=== PATIENT | female | born 1980 | race Asian ===

== ENCOUNTER 2016-10-22 19:20 | Emergency (ER) | payer OTHER ==
--- NOTE | 2016-10-22 19:26 | PDOC ---
History of Present Illness - General History Source: Patient Exam Limitations: No Limitations - History of Present Illness Initial Comments: 10/22/16 20:51 The patient is a 36 year old female presenting, with a significant past medical history of diabetes and HTN, who presents to the emergency department with abdominal pain, nausea and chills for the past 2 weeks. She describes her pain as localized in the right lower quadrant, ranging from mild to moderate, without radiation or modifying factors. She states that the pain usually lasts roughly 1 minute before resolving. She denies taking anything for the pain. The patient went to urgent care to get evaluated and was advised to come to the ED for further evaluation. The patient denies chest pain, shortness of breath, headache and dizziness. Denies fever, chills, nausea, vomit, diarrhea and constipation. Denies dysuria, frequency, urgency and hematuria. Allergies: None Past surgical history: None reported Social history: No alcohol, tobacco or drug use reported <Delvin Lugo - Last Filed: 10/22/16 21:43> <Tia Flores - Last Filed: 10/23/16 00:22> - General Chief Complaint: Pain Stated Complaint: ABD PAIN SENT FROM URGENT CARE Time Seen by Provider: 10/22/16 19:23 Past History <Delvin Lugo - Last Filed: 10/22/16 21:43> - Past Medical History Asthma: No Cancer: No Cardiac Disorders: No Diabetes: Yes HTN: Yes Seizures: No Thyroid Disease: No - Psycho/Social/Smoking Cessation Hx Suicidal Ideation: No Smoking History: Never smoked Have you smoked in the past 12 months: No Number of Cigarettes Smoked Daily: 0 Hx Alcohol Use: No Drug/Substance Use Hx: No Hx Substance Use Treatment: No <Tia Flores - Last Filed: 10/23/16 00:22> - Past Medical History Allergies/Adverse Reactions: Allergies Allergy/AdvReac Type Severity Reaction Status Date / Time No Known Allergies Allergy Verified 10/22/16 19:22 Home Medications: Ambulatory Orders NK [No Known Home Medication] 02/03/16 Review of Systems - Review of Systems Able to Perform ROS?: Yes Comments:: 10/22/16 20:47 GENERAL/CONSTITUTIONAL: (+) Chills. No fever. No weakness. HEAD, EYES, EARS, NOSE AND THROAT: No change in vision. No ear pain or discharge. No sore throat. CARDIOVASCULAR: No chest pain or shortness of breath RESPIRATORY: No cough, wheezing, or hemoptysis. GASTROINTESTINAL: (+) Abdominal pain, Nausea. No vomiting, diarrhea or constipation. GENITOURINARY: No dysuria, frequency, or change in urination. MUSCULOSKELETAL: No joint or muscle swelling or pain. No neck or back pain. SKIN: No rash NEUROLOGIC: No headache, vertigo, loss of consciousness, or change in strength/ sensation. ENDOCRINE: No increased thirst. No abnormal weight change HEMATOLOGIC/LYMPHATIC: No anemia, easy bleeding, or history of blood clots. ALLERGIC/IMMUNOLOGIC: No hives or skin allergy. <Delvin Lugo - Last Filed: 10/22/16 21:43> *Physical Exam - Vital Signs Last Vital Signs Temp Pulse Resp BP Pulse Ox 98.1 F 76 18 115/80 98 10/22/16 19:20 10/22/16 19:20 10/22/16 19:20 10/22/16 19:20 10/22/16 19:20 - Physical Exam Comments: 10/22/16 21:36 GENERAL: Awake, alert, and fully oriented, in no acute distress HEAD: No signs of trauma, normocephalic, atraumatic EYES: PERRLA, EOMI, sclera anicteric, conjunctiva clear ENT: Auricles normal inspection, hearing grossly normal, nares patent, oropharynx clear without exudates. (+) Dry mucosa NECK: Normal ROM, supple, no lymphadenopathy, JVD, or masses LUNGS: No distress, speaks full sentences, clear to auscultation bilaterally HEART: Regular rate and rhythm, normal S1 and S2, no murmurs, rubs or gallops, peripheral pulses normal and equal bilaterally. ABDOMEN: (+) Bilateral lower quadrant and suprapubic tenderness, moderate in the right lower quadrant and mild in the suprapubic, left lower quadrant. No peritoneal signs. Soft, normoactive bowel sounds. No guarding, no rebound. No masses. EXTREMITIES: Normal inspection, Normal range of motion, no edema. No clubbing or cyanosis. NEUROLOGICAL: Cranial nerves II through XII grossly intact. Normal speech, normal gait, no focal sensorimotor deficits SKIN: Warm, Dry, normal turgor, no rashes or lesions noted. <Delvin Lugo - Last Filed: 10/22/16 21:43> ED Treatment Course - LABORATORY CBC & Chemistry Diagram: 10/22/16 20:47 10/22/16 20:47 <Delvin Lugo - Last Filed: 10/22/16 21:43> - LABORATORY CBC & Chemistry Diagram: 10/22/16 20:47 10/22/16 20:47 <Tia Flores - Last Filed: 10/23/16 00:22> Progress Note - Progress Note Progress Note: Documentation has been prepared under my direction and personally reviewed by me in its entirety. I attest that this documented accurately reflects all work, treatment, procedures and medical decision making performed by me. <Tia Flores - Last Filed: 10/23/16 00:22> Medical Decision Making - Medical Decision Making As noted above, this otherwise healthy 36-year-old woman presents to the ER, having been referred here from urgent care. Patient has had 2 weeks of intermittent right lower quadrant pain. She describes pain as lasting a minute and sharp in quality; she has no associated symptoms of fever/vomiting/lack of appetite. However, on exam she has significant right lower quadrant and milder suprapubic/left lower quadrant tenderness. For this reason, laboratory evaluation and abdominal/pelvic CT performed to rule out acute appendicitis Laboratory evaluation essentially normal except for evidence of prerenal azotemia (BUN 21 with a creatinine of 0.6 ) . White blood cell count is normal Abdominal/pelvic CT shows bilateral small (1-1.5 cm) ovarian cyst without evidence of free fluid or other ovarian/adnexal abnormality. Appendix appears normal as does the remainder of the GI tract and solid organs. Results discussed with the patient. She is currently comfortable and refuses any medication for her pain. Patient currently does not have a sales promotion manager. She states that she will be able to research and find a sales promotion manager. She should follow-up with her sales promotion manager within the next 3-5 days. She should return to the emergency room if she has worsening pain or experiences fever/vomiting. <Tia Flores - Last Filed: 10/23/16 00:22> *DC/Admit/Observation/Transfer - Attestations Scribe Attestion: 10/22/16 20:47 Documentation prepared by Delvin Lugo, acting as certified medical biller for Tia Flores MD <Delvin Lugo - Last Filed: 10/22/16 21:43> <Tia Flores - Last Filed: 10/23/16 00:22> Diagnosis at time of Disposition: Bilateral ovarian cysts - Discharge Dispostion Disposition: HOME Condition at time of disposition: Stable - Patient Instructions Printed Discharge Instructions: DI for Ovarian Cyst Additional Instructions: Drink plenty of fluids Ibuprofen/naproxen/acetaminophen as needed for pain Follow-up with your sales promotion manager within the next 2-3 days Return to ER if you have worsening pain or develop fever/vomiting
[2016-10-22 19:48] VITALS: BP 115/80; PULSE 76; TEMP 98.1; BMI 22.1
[2016-10-22] MEDS ORDERED: SODIUM CHLORIDE 1,000 ML IV STA (20:38)
[2016-10-22 20:56] LABS: PH,URINE 5.5 (4.5-8); URINE APPEARANCE Clear; URINE BILIRUBIN Negative (NEGATIVE); URINE BLOOD Negative (NEGATIVE); URINE GLUCOSE (UA) Negative (NEGATIVE); URINE KETONE Negative (NEGATIVE); URINE LEUK ESTERASE Negative (NEGATIVE); URINE NITRITE Negative (NEGATIVE); URINE PROTEIN Negative (NEGATIVE); URINE UROBILINOGEN 0.2 E.U/dl (0.2-1.0)
[2016-10-22 20:57] LABS: EOSINOPHIL 0.6 % (0-4.5); WHITE BLOOD COUNT 8.1 K/mm3 (4.0-10.8)
[2016-10-22 21:02] LABS: BASOPHIL 2.3 % (0-2.0); MCH 29.9 pg (25.7-33.7); MEAN CELL VOLUME 90.8 fl (80-96); MEAN PLT VOLUME 9.4 fl (7.5-11.1); NEUTROPHILS 46.7 % (42.8-82.8); PLATELET COUNT 228 K/MM3 (134-434)
[2016-10-22 21:06] LABS: URINE COLOR YELLOW
[2016-10-22 21:08] LABS: ALBUMIN 4.2 g/dl (3.5-5.0); ALK PHOS 65 U/L (32-92); ANION GAP 7 (8-16); BILIRUBIN,TOTAL 0.3 mg/dl (0.2-1.0); CALCIUM 9.3 mg/dl (8.4-10.2); CO2 25 mmol/L (22-28); CREATININE 0.6 mg/dl (0.6-1.3); GLUCOSE,RANDOM 79 mg/dl (74-106); SGOT/AST 28 U/L (10-42); SGPT/ALT 20 U/L (10-40); TOT PROT 7.1 g/dl (6.4-8.3)
== END 2016-10-22 22:30 | disposition home or self-care (01) ==
LOC: FER 19:20
PROC: 3E0337Z Introduction of Electrolytic and Water Balance Substance into Peripheral Vein, Percutaneous Approach (ICD-10-PCS; principal; 2016-10-22)
DX: N83.202 Unspecified ovarian cyst, left side (principal); N83.201 Unspecified ovarian cyst, right side; I10 Essential (primary) hypertension; E11.9 Type 2 diabetes mellitus without complications
CPT/HCPCS: 36415; 74177-TC; 80053; 81003; 84703; 85025; 99283-25

== ENCOUNTER 2018-10-15 10:55 | Emergency (ER) | payer OTHER ==
[2018-10-15 11:13] VITALS: TEMP 98.3; BMI 21.5
[2018-10-15 11:27] LABS: BASO % 0.3 % (0-2.0); EOS % 1.3 % (0-4.5); HEMATOCRIT 40.9 % (32.4-45.2); HEMOGLOBIN 13.6 GM/dL (10.7-15.3); LYMPH % 17.7 % (8-40); MCH 30.5 pg (25.7-33.7); MCHC 33.2 g/dl (32.0-36.0); MEAN PLT VOLUME 8.8 fl (7.5-11.1); MONO % 5.1 % (3.8-10.2); NEUT % 75.6 % (42.8-82.8); PLATELET COUNT 186 K/MM3 (134-434); RBC 4.45 M/mm3 (3.60-5.2); RDW 13.8 % (11.6-15.6); WHITE BLOOD COUNT 8.1 K/mm3 (4.0-10.0)
[2018-10-15] MEDS ORDERED: SODIUM CHLORIDE 1,000 ML IV STA (11:32)
--- NOTE | 2018-10-15 11:33 | PDOC ---
History of Present Illness - General Chief Complaint: Syncope/Near Syncope Stated Complaint: SYNCOPE Time Seen by Provider: 10/15/18 11:04 History Source: Patient Exam Limitations: Clinical Condition - History of Present Illness Initial Comments: 10/15/18 11:28 Patient with no significant past medical history brought in by EMS due to syncope episode while in a store an hour ago. Patient reported sudden onset of dizziness while in the grocery store and passed out. Patient not sure if she hit her head. Patient reported mild pain to anterior right lower leg from fall. Patient reported mild nausea but no vomiting. Denies blurry vision or change in vision now. Denies headache, chest pain or shortness of breath. Denies any other symptoms Timing/Duration: 1-3 hours Past History - Past Medical History Allergies/Adverse Reactions: Allergies Allergy/AdvReac Type Severity Reaction Status Date / Time No Known Allergies Allergy Verified 10/22/16 19:22 Home Medications: Ambulatory Orders NK [No Known Home Medication] 02/03/16 Asthma: No Cancer: No Cardiac Disorders: No Diabetes: Yes HTN: Yes Seizures: No Thyroid Disease: No - Suicide/Smoking/Psychosocial Hx Smoking History: Unknown if ever smoked Have you smoked in the past 12 months: No Number of Cigarettes Smoked Daily: 0 Information on smoking cessation initiated: No Hx Alcohol Use: No Drug/Substance Use Hx: No Hx Substance Use Treatment: No Review of Systems - Review of Systems Able to Perform ROS?: Yes Is the patient limited Sudanese proficient: No Constitutional: Yes: Weakness. No: Chills, Fever HEENTM: No: Symptoms Reported, See HPI, Eye Pain, Blurred Vision, Tearing, Recent change in vision, Double Vision, Cataracts, Ear Pain, Ocular Prothesis, Ear Discharge, Nose Pain, Nose Congestion, Tinnitus, Nose Bleeding, Hearing Loss , Throat Pain, Throat Swelling, Mouth Pain, Dental Problems, Difficulty Swallowing, Mouth Swelling, Other Respiratory: No: Symptoms reported, See HPI, Cough, Orthopnea, Shortness of Breath, SOB with Exertion, SOB at Rest, Stridor, Wheezing, Productive cough, Hemoptysis, Other Cardiac (ROS): Yes: Symptoms Reported, See HPI, Syncope. No: Chest Pain, Edema , Irregular Heart Rate, Lightheadedness, Palpitations, Chest Tightness, Other ABD/GI: Yes: Nausea. No: See HPI, Constipated, Diarrhea, Vomiting, Abdominal cramping Musculoskeletal: Yes: See HPI, Muscle Pain (anterior right lower leg). No: Joint Swelling Integumentary: No: Bruising Neurological: Yes: See HPI, Dizziness. No: Headache, Numbness, Paresthesia All Other Systems: Reviewed and Negative *Physical Exam - Vital Signs Last Vital Signs Temp Pulse Resp BP Pulse Ox 98.3 F 70 18 84/60 L 100 10/15/18 11:07 10/15/18 11:07 10/15/18 11:07 10/15/18 11:07 10/15/18 11:07 - Physical Exam Comments: 10/15/18 11:34 GENERAL: Well developed, well nourished. Awake and alert. No acute distress. HEENT: Normocephalic, atraumatic. PERRLA, EOMI. No conjunctival pallor. Sclera are non- icteric. Moist mucous membranes. Oropharynx is clear. NECK: Supple. Full ROM. No JVD. Carotid pulses 2+ and symmetric, without bruits. No thyromegaly. No lymphadenopathy. CARDIOVASCULAR: Regular rate and rhythm. No murmurs, rubs, or gallops. Distal pulses are 2+ and symmetric. PULMONARY: No evidence of respiratory distress. Lungs clear to auscultation bilaterally. No wheezing, rales or rhonchi. ABDOMINAL: Soft. Non-tender. Non-distended. No rebound or guarding. No organomegaly. Normoactive bowel sounds. MUSCULOSKELETAL Normal range of motion at all joints. No bony deformities or tenderness. EXTREMITIES: No cyanosis. No clubbing. No edema. No calf tenderness. SKIN: Warm and dry. Normal capillary refill. No rashes. No jaundice. NEUROLOGICAL: Alert, awake, appropriate. Cranial nerves 2-12 intact. Normal speech. PSYCHIATRIC: Cooperative. Good eye contact. Appropriate mood and affect. General Appearance: Yes: Nourished, Appropriately Dressed. No: Apparent Distress ED Treatment Course - LABORATORY CBC & Chemistry Diagram: 10/15/18 11:13 10/15/18 11:20 Medical Decision Making - Medical Decision Making 10/15/18 11:31 Patient with no significant past medical history brought in by EMS due to syncope episode while in a store an hour ago. Patient reported sudden onset of dizziness while in the grocery store and passed out. Patient not sure if she hit her head. Patient reported mild pain to anterior right lower leg from fall. Patient reported mild nausea but no vomiting. Denies blurry vision or change in vision now. Denies headache, chest pain or shortness of breath. Denies any other symptoms Exam significant for patient being hypotensive of 80s over 60s. EKG shows normal rhythm. Normal neuro exam and cardio exam. CBC, CMP and cardiac profile lab ordered. UA, urine culture and urine hCG lab ordered. IV hydration with 1 L normal saline ordered in addition to 1 L given by EMS. Patient placed on groundwater monitoring technician. Reassess after lab and fluid hydration 10/15/18 12:10 CBC CMP and cardiac profile labs unremarkable. BP improved to 106/72 after 1L IVF. urine lab pending. Patient report improved symptoms. Will repeat cardiac labs after 3 hours of first lab. c/w groundwater monitoring technician 10/15/18 14:46 Patient report no symptoms now and wants to go home. repeat cardiac labs sent. dispo after labs 10/15/18 15:46 rpt cardiac profile wnl. Patient stable for discharge with cardiology follow-up *DC/Admit/Observation/Transfer Diagnosis at time of Disposition: Syncope Qualifiers: Syncope type: unspecified Qualified Code(s): R55 - Syncope and collapse - Discharge Dispostion Disposition: HOME Condition at time of disposition: Stable Decision to Admit order: No - Referrals Referrals: Clay Raphael MD [Staff Physician] - - Patient Instructions Printed Discharge Instructions: DI for Syncope in Adults (Fainting) Additional Instructions: your labs and EKG was normal. Your symptoms is likely low blood pressure which needs follow-up with admission specialist. Follow-up with referred admission specialist for follow-up management - Post Discharge Activity
[2018-10-15 11:58] LABS: ALBUMIN 3.5 g/dl (3.4-5.0); ALK PHOS 75 U/L (45-117); ANION GAP 3 MMOL/L (8-16); BILIRUBIN,TOTAL 0.5 mg/dL (0.2-1); BLOOD UREA NITROGEN 16 mg/dL (7-18); CALCIUM 8.6 mg/dL (8.5-10.1); CHLORIDE 108 mmol/L (98-107); CO2 27 mmol/L (21-32); CREATININE 0.7 mg/dL (0.55-1.3); GLUCOSE,RANDOM 95 mg/dL (74-106); POTASSIUM 3.9 mmol/L (3.5-5.1); SGOT/AST 24 U/L (15-37); SGPT/ALT 29 U/L (13-61); SODIUM 137 mmol/L (136-145); TOT PROT 6.8 g/dl (6.4-8.2)
[2018-10-15 12:54] VITALS: BP 111/73; PULSE 90
[2018-10-15 15:32] LABS: URINE APPEARANCE CLEAR; URINE BILIRUBIN NEGATIVE (NEGATIVE); URINE COLOR YELLOW; URINE GLUCOSE (UA) NEGATIVE (NEGATIVE); URINE KETONE NEGATIVE (NEGATIVE); URINE LEUK ESTERASE NEGATIVE (NEGATIVE); URINE NITRITE NEGATIVE (NEGATIVE); URINE PROTEIN NEGATIVE (NEGATIVE); URINE UROBILINOGEN 0.2 mg/dL (0.2-1.0)
--- NOTE | 2018-10-15 15:36 | EKG ---
Test Reason : Blood Pressure : / mmHG Vent. Rate : 069 BPM Atrial Rate : 069 BPM P-R Int : 164 ms QRS Dur : 106 ms QT Int : 370 ms P-R-T Axes : 067 090 048 degrees QTc Int : 396 ms NORMAL SINUS RHYTHM RIGHTWARD AXIS INCOMPLETE RIGHT BUNDLE BRANCH BLOCK BORDERLINE ECG NO PREVIOUS ECGS AVAILABLE Confirmed by ADEOLA MACIEL MD ([id number]) on 10/15/2018 3:36:27 PM Referred By: Confirmed By:ADEOLA MACIEL MD
== END 2018-10-15 16:09 | disposition home or self-care (01) ==
LOC: JER 10:55
PROC: 3E0337Z Introduction of Electrolytic and Water Balance Substance into Peripheral Vein, Percutaneous Approach (ICD-10-PCS; principal; 2018-10-15)
DX: R55 Syncope and collapse (principal); M79.604 Pain in right leg; W18.39XA Other fall on same level, initial encounter; Y93.89 Activity, other specified; Y92.512 Supermarket, store or market as the place of occurrence of the external cause; Y99.8 Other external cause status
CPT/HCPCS: 36415; 80053; 81003; 82550; 82962; 84484; 84703; 85025; 87086; 93005; 93010; 99285-25; J7030